=== PATIENT | female | born 1960 | race Caucasian/White ===

== ENCOUNTER 2024-03-30 10:02 | Day surgery (SDC) | payer MEDICARE, BC ==
[~2024-03-30] VITALS: Ht 167.6 cm; Wt 67.0 kg
[2024-03-30] VITALS (9 sets, daily range): BP systolic 103–130; BP diastolic 47–70; PULSE 62–77; RESP 10–18; TEMP 97.9; O2SAT 92–98
[2024-03-30] MEDS ORDERED: METO-411 PO (10:39)
[2024-03-30] MEDS ORDERED: MULT-1085 PO (10:39)
[2024-03-30] MEDS ORDERED: SPIR25TA5 PO (10:39)
[2024-03-30] MEDS ORDERED: AMLO-382 PO (10:39)
[2024-03-30 11:09] LABS: BASOPHILS # (AUTO) 0.1 X10'3 (0-0.2); BASOPHILS % (AUTO) 0.8 % (0-1); EOSINOPHILS # (AUTO) 0.1 X10'3 (0-0.9); EOSINOPHILS % (AUTO) 1.5 % (0-6); HEMOGLOBIN 11.6 g/dl (12.0-16.0); LYMPHOCYTES # (AUTO) 2.6 X10'3 (1.1-4.8); LYMPHOCYTES % (AUTO) 31.5 % (21-51); MEAN CORPUSCULAR HEMOGLOBIN 33.2 PG (27.0-31.0); MEAN CORPUSCULAR VOLUME 97.7 FL (78-98); MEAN PLATELET VOLUME 8.2 FL (7.4-10.4); MONOCYTES # (AUTO) 0.7 X10'3 (0-0.9); NEUTROPHILS # (AUTO) 4.6 X10'3 (1.8-7.7); NEUTROPHILS % (AUTO) 57.2 % (42-75); PLATELET COUNT 267 X10'3 (140-440); RED BLOOD COUNT 3.48 X10'6 (4.20-5.60); RED CELL DISTRIBUTION WIDTH 12.4 % (11.5-14.5); WHITE BLOOD COUNT 8.1 X10'3 (4.5-11.0)
[2024-03-30 11:35] LABS: INR 0.9 INR; PROTHROMBIN TIME 9.9 SECONDS (9.0-12.0)
[2024-03-30 11:45] LABS: ALBUMIN 3.7 G/DL (3.4-5.0); ANION GAP 9 (8-16); BLOOD UREA NITROGEN 16 MG/DL (7-18); BUN/CREATININE RATIO 15.2 (10.0-20.0); CALCIUM 9.9 MG/DL (8.5-10.1); CHLORIDE 107 MMOL/L (99-107); CHOL/HDL RATIO 3.7 (0.00-4.99); CHOLESTEROL 184 MG/DL (0-200); CREATININE 1.05 MG/DL (0.40-0.90); GLUCOSE 99 MG/DL (70-104); HDL CHOLESTEROL 50 MG/DL (35-60); LDL CHOLESTEROL 113 MG/DL (50-100); POTASSIUM 3.9 MMOL/L (3.5-5.1); SODIUM 140 MMOL/L (135-145); TOTAL CARBON DIOXIDE 24.5 MMOL/L (24-32); TRIGLYCERIDES 154 MG/DL (20-135); eCRCL 50 ML/MIN; eGFR 53 ML/MIN
[2024-03-30] MEDS: normal saline 1,000 ML IV SCH (11:51)
[2024-03-30] MEDS: diphenhydrAMINE 25mg capsule PO PRN (11:51)
[2024-03-30] MEDS: LORazepam 0.5 MG tablet PO PRN (11:51)
[2024-03-30] MEDS ORDERED: LIDOcaine 1% (10mg/ml) 2ml vial ONE (12:04)
[2024-03-30] MEDS ORDERED: verapamil 2.5 mg/ml inj IV ONE (12:04)
[2024-03-30] MEDS ORDERED: iohexol 350MG/ML 100ml bottle IV ONE (12:05)
[2024-03-30] MEDS ORDERED: fentaNYL/PF 50MCG/1 ML 2ML syringe ONE (12:05)
[2024-03-30] MEDS ORDERED: heparin 1,000unit/ml 10ml vial 10 ML ONE (12:05)
[2024-03-30] MEDS ORDERED: midazolam 1 mg/ML 2ml injection ONE (12:05)
[2024-03-30] MEDS ORDERED: nitroGLYCERIN 500mcg/5mL D5W 5 ML IV ONE (12:06)
[2024-03-30 13:32] LABS: ISTAT HGB ART 10.9 g/dl (12.0-16.0); ISTAT Hct ART 32 %PCV (35-45); ISTAT O2 SATURATION ARTERIAL 91 % (95-98); ISTAT SOURCE ART
[2024-03-30] MEDS ORDERED: HYDROcodone/acetaminophen 5mg/325mg tablet PO PRN (14:05)
[2024-03-30] MEDS ORDERED: HYDROcodone/acetaminophen 10/325mg tab PO PRN (14:05)
[2024-03-30 16:16] LABS: ISTAT HGB MIX 10.5 g/dl (12.0-16.0); ISTAT Hct MIX 31 %PCV (35-45); ISTAT O2 SATURATION MIX VENOUS 67 % (60-80); ISTAT SOURCE VEN
== END 2024-03-30 16:20 | disposition home or self-care (01) ==
LOC: SSTAY O 10:02
PROVIDERS: ATTEND Internal Medicine Interventional Cardiology
DX: I35.0 Nonrheumatic aortic (valve) stenosis (principal); I10 Essential (primary) hypertension; R94.31 Abnormal electrocardiogram [ECG] [EKG]; I11.9 Hypertensive heart disease without heart failure; E78.00 Pure hypercholesterolemia, unspecified; Z79.899 Other long term (current) drug therapy
CPT/HCPCS: 36415; 80048; 80061; 82803; 85014; 85025; 85610; 93005; 93460; 99152; A6258; A6402; C1751; C1769; C1894; J1644; J2001; J2250; J3010; J3490; J7030; Q0163; Q9967; Z7610

== ENCOUNTER 2024-04-19 10:35 | Outpatient (CLI) | payer MEDICARE, BC ==
[2024-04-15 15:45] LABS: ALBUMIN 4.2 G/DL (3.4-5.0); ANION GAP 7 (8-16); BLOOD UREA NITROGEN 19 MG/DL (7-18); BUN/CREATININE RATIO 20.7 (10.0-20.0); CALCIUM 10.1 MG/DL (8.5-10.1); CHLORIDE 104 MMOL/L (99-107); CREATININE 0.92 MG/DL (0.40-0.90); GLUCOSE 94 MG/DL (70-104); POTASSIUM 4.2 MMOL/L (3.5-5.1); SODIUM 138 MMOL/L (135-145); TOTAL CARBON DIOXIDE 27.1 MMOL/L (24-32); eGFR 61 ML/MIN
[~2024-04-19 10:35] MED LIST: AMLO-382 PO; METO-411 PO; MULT-1085 PO; SPIR25TA5 PO
[2024-04-19] MEDS ORDERED: iohexol 350MG/ML 100ml bottle IV ONE (11:20)
== END 2024-04-19 23:59 | disposition home or self-care (01) ==
LOC: RAD 10:35
PROVIDERS: ATTEND Internal Medicine Interventional Cardiology
DX: I35.8 Other nonrheumatic aortic valve disorders (principal); E78.5 Hyperlipidemia, unspecified; K76.89 Other specified diseases of liver; I70.0 Atherosclerosis of aorta
CPT/HCPCS: 36415; 71275; 80048; Q9967

== ENCOUNTER 2024-07-21 05:36 | Inpatient (IN) | payer MEDICARE, BC ==
[2024-07-14 13:32] VITALS: PULSE 84; RESP 16; O2SAT 98
[2024-07-14 15:27] LABS: BILIRUBIN,URINE NEGATIVE (Neg); CLARITY,URINE CLOUDY (Clear); COLOR,URINE YELLOW (Yellow); GLUCOSE, URINE NEGATIVE (Neg); KETONES,URINE NEGATIVE (Neg); LEUKOCYTE ESTERASE ,URINE NEGATIVE (Neg); NITRITES, URINE NEGATIVE (Neg); OCCULT BLOOD,URINE NEGATIVE (Neg); PH,URINE 7.5 (4.8-8.0); PROTEIN,URINE NEGATIVE (Neg); UROBILINOGEN,URINE 0.2 E.U/dL (0.2-1.0)
[2024-07-14 15:29] LABS: BASOPHILS # (AUTO) 0.1 X10'3 (0-0.2); BASOPHILS % (AUTO) 0.7 % (0-1); EOSINOPHILS # (AUTO) 0.1 X10'3 (0-0.9); LYMPHOCYTES # (AUTO) 2.4 X10'3 (1.1-4.8); LYMPHOCYTES % (AUTO) 29.4 % (21-51); MEAN CORPUSCULAR HEMOGLOBIN 33.5 PG (27.0-31.0); MEAN CORPUSCULAR HGB CONC 34.1 g/dL (33.0-36.5); MEAN CORPUSCULAR VOLUME 98.1 FL (78-98); MEAN PLATELET VOLUME 8.3 FL (7.4-10.4); MONOCYTES # (AUTO) 0.9 X10'3 (0-0.9); MONOCYTES % (AUTO) 10.8 % (2-12); NEUTROPHILS # (AUTO) 4.8 X10'3 (1.8-7.7); NEUTROPHILS % (AUTO) 58.1 % (42-75); PRE OP HEMATOCRIT 35.5 % (35.0-45.0); PRE OP HEMOGLOBIN 12.1 g/dL (12.0-16.0); PRE OP PLATELET COUNT 306 X10'3 (140-440); PRE OP WHITE BLOOD COUNT 8.3 10'3 (4.8-10.8); RED BLOOD COUNT 3.61 X10'6 (4.20-5.60); RED CELL DISTRIBUTION WIDTH 12.5 % (11.5-14.5)
[2024-07-14 15:40] LABS: UA COLLECTION TYPE CLN CATCH MIDSTREAM
[2024-07-14 15:41] LABS: AMORPHOUS PHOSPHATES 4+; BACTERIA,URINE 1+ /HPF (Neg); HEMOGLOBIN A1C 5.4 % (4.5-6.2); MUCUS STRANDS FEW /LPF (Neg); RBC,URINE NONE SEEN /HPF (0-2); SQUAMOUS EPITHELIAL CELL,UR FEW /LPF (FEW); WBC,URINE NONE SEEN /HPF (0-4)
[2024-07-14 15:43] LABS: PRE OP PROTIME 10.1 SECONDS (9.0-12.0)
[2024-07-14 15:44] LABS: ALBUMIN 4.1 G/DL (3.4-5.0); ALBUMIN/GLOBULIN RATIO 1.2 (1.1-1.5); ALKALINE PHOSPHATASE 69 IU/L (46-116); BLOOD UREA NITROGEN 21 MG/DL (7-18); BUN/CREATININE RATIO 23.3 (10.0-20.0); CALCIUM 10.4 MG/DL (8.5-10.1); CHLORIDE 108 MMOL/L (99-107); PRE OP ALT 23 U/L (30-65); PRE OP ANION GAP 8 (8-16); PRE OP AST 16 U/L (10-37); PRE OP BILIRUB, TOTAL 0.2 MG/DL (0.0-1.0); PRE OP GLUCOSE 86 MG/DL (70-104); PRE OP POTASSIUM 3.7 MMOL/L (3.4-5.1); PRE OP SODIUM 144 MMOL/L (135-145); TOTAL CARBON DIOXIDE 27.9 MMOL/L (24-32); TOTAL PROTEIN 7.5 G/DL (6.4-8.2); eGFR 63 ML/MIN
[2024-07-15 06:24] LABS: ABG BASE EXCESS 1.4 mmol/L (-2.0-3.0); ABG HCO3 23.8 mmol/L (21.0-28.0); ABG OXYGEN SATURATION 95.7 % (94.0-98.0); ABG PCO2 (T) 30.8 mmHg (32.0-45.0); ABG PH (T) 7.506 (7.350-7.450); ABG PO2 (T) 71.5 mmHg (83.0-108.0); ALLEN'S TEST POSITIVE; FCOHb 0.3 % (0.5-1.5); FHHb 4.3 % (0.0-5.0); FMetHb 0.3 % (0.0-1.5); FO2Hb 95.1 % (94.0-98.0); MODE ROOM AIR; TOTAL HEMOGLOBIN 12.5 G/dl (12.0-16.0)
[~2024-07-21] VITALS: Ht 167.6 cm; Wt 66.5 kg
[2024-07-21] VITALS (25 sets, daily range): BP systolic 96–159; BP diastolic 46–71; PULSE 76–100; RESP 14–23; TEMP 98.4; O2SAT 91–99
[2024-07-21] MEDS: DOCUMENT DATE & TIME OF BETA-BLOCKER PO ONE (05:30)
[2024-07-21] MEDS: vancomycin/NS 1 GM ADD-VANTAGE 250 ML IV ONE (05:30)
[2024-07-21] MEDS: Insulin Reg/NS 100units/100mL 100 ML IV SCH (05:30)
[~2024-07-21 05:36] MED LIST changes: +HYDR25TA90 PO; -SPIR25TA5 PO; +VANCOMYCIN 1GM 200ML H20 (PEG) 200 ML IV ONE; +dextrose 50%-water 50ml dispensing syringe IV PRN; +insulin glargine (Lantus) pen - multi-dose SQ PRN
[2024-07-21] MEDS: famotidine 20mg tablet PO ONE (06:11)
[2024-07-21] MEDS: mupirocin 2% nasal ointment 1gm UD NS ONE (06:11)
[2024-07-21] MEDS: metoprolol tartrate 12.5mg (1/2 tablet) PO ONE (06:16)
[2024-07-21] MEDS: ceFAZolin 2gm in dextrose, iso 50 ML IV ONE (06:20)
[2024-07-21] MEDS: ringers solution, lacted 1,000 ML IV SCH (06:21)
[2024-07-21] MEDS ORDERED: epiNEPHrine 1 mg/ml inj ONE (07:21)
[2024-07-21] MEDS ORDERED: vancomycin 1,000mg inj ONE (07:21)
[2024-07-21] MEDS ORDERED: ceFAZolin 1000mg inj ONE (07:21)
[2024-07-21] MEDS ORDERED: potassium acetate 2 mEq/1ml inj. IV ONE (08:00)
[2024-07-21] MEDS ORDERED: MIDAZolam 1 MG/ML 5ML VIAL ONE (08:12)
[2024-07-21] MEDS ORDERED: SUfentanil 50mcg/ml 1ml amp IV ONE (08:12)
[2024-07-21] MEDS ORDERED: propofol inj 20 ML IV ONE (08:19)
[2024-07-21] MEDS ORDERED: sevoflurane 250ml liquid IH ONE (08:27)
[2024-07-21] MEDS: LORazepam 2 mg/ml vial ONE (08:27)
[2024-07-21 09:10] LABS: ABG HCO3 21.3 mmol/L (21.0-28.0); ABG OXYGEN SATURATION 98.4 % (94.0-98.0); ABG PCO2 35.2 mmHg (32.0-45.0); ABG PO2 133.4 mmHg (83.0-108.0); CL (ABG) 107 mmol/L (98-107); FCOHb 0.3 % (0.5-1.5); FHHb 1.6 % (0.0-5.0); FMetHb 0.3 % (0.0-1.5); FO2Hb 97.8 % (94.0-98.0); GLUCOSE (ABG) 103 mg/dl (65-95); IONIZED CA (ABG) 1.27 mmol/L (1.15-1.33); K (ABG) 3.9 mmol/L (3.40-4.50); TOTAL HEMOGLOBIN 10.8 G/dl (12.0-16.0)
[2024-07-21 09:39] LABS: ABG BASE EXCESS -2.5 mmol/L (-2.0-3.0); ABG HCO3 21.5 mmol/L (21.0-28.0); ABG OXYGEN SATURATION 99.5 % (94.0-98.0); ABG PCO2 33.3 mmHg (32.0-45.0); ABG PH 7.428 (7.350-7.450); CL (ABG) 104 mmol/L (98-107); FCOHb 0.5 % (0.5-1.5); FHHb 0.5 % (0.0-5.0); GLUCOSE (ABG) 107 mg/dl (65-95); IONIZED CA (ABG) 1.09 mmol/L (1.15-1.33); K (ABG) 5.7 mmol/L (3.40-4.50); TOTAL HEMOGLOBIN 7.2 G/dl (12.0-16.0)
[2024-07-21 10:02] LABS: ABG BASE EXCESS VENOUS -2.4 mmol/L (-2.0-3.0); ABG HCO3 VENOUS 23.4 mmol/L (22.0-29.0); ABG OXYGEN SATURATION VENOUS 79.9 % (60.0-85.0); ABG PCO2 VENOUS 45.2 mmHg (38.0-54.0); ABG PH (VENOUS) 7.332 (7.320-7.430); ABG PO2 VENOUS 44.7 mmHg (23.0-48.0); CL (ABG) 105 mmol/L (98-107); FCOHb VENOUS 0.3 % (0.5-1.5); FMetHb VENOUS 0.1 % (0.5-1.5); FO2Hb VENOUS 79.6 % (0-80.0); GLUCOSE (ABG) 161 mg/dl (65-95); IONIZED CA (ABG) 1.19 mmol/L (1.15-1.33); K (ABG) 4.9 mmol/L (3.40-4.50); TOTAL HEMOGLOBIN 9.1 G/dl (12.0-16.0)
[2024-07-21 10:06] LABS: ABG PO2 514.6 mmHg (83.0-108.0)
[2024-07-21 10:43] LABS: ABG BASE EXCESS VENOUS -3.2 mmol/L (-2.0-3.0); ABG HCO3 VENOUS 22.3 mmol/L (22.0-29.0); ABG OXYGEN SATURATION VENOUS 80.6 % (60.0-85.0); ABG PCO2 VENOUS 41.8 mmHg (38.0-54.0); ABG PH (VENOUS) 7.345 (7.320-7.430); ABG PO2 VENOUS 45.3 mmHg (23.0-48.0); CL (ABG) 105 mmol/L (98-107); FCOHb VENOUS 0.2 % (0.5-1.5); FHHb VENOUS 19.3 %; FMetHb VENOUS 0.1 % (0.5-1.5); FO2Hb VENOUS 80.4 % (0-80.0); GLUCOSE (ABG) 182 mg/dl (65-95); IONIZED CA (ABG) 1.36 mmol/L (1.15-1.33); K (ABG) 4.5 mmol/L (3.40-4.50); TOTAL HEMOGLOBIN 8.8 G/dl (12.0-16.0)
[2024-07-21 10:45] LABS: ACTIVATED CLOTTING TIME 104 SEC (101-148)
[2024-07-21] MEDS ORDERED: magnesium hydroxide 30ml (MOM) UD suspension PO PRN (11:00)
[2024-07-21] MEDS ORDERED: Neutra Phos packet PO PRN (11:00)
[2024-07-21] MEDS ORDERED: potassium Cl 40MEQ/1/2NS 520ml 520 ML IV PRN (11:00)
[2024-07-21] MEDS ORDERED: morphine 4 MG/ML inj SYRINge IV PRN (11:00)
[2024-07-21] MEDS ORDERED: dextrose 50%-water 50ml dispensing syringe IV PRN (11:00)
[2024-07-21] MEDS ORDERED: Insulin Reg/NS 100units/100mL 100 ML IV SCH (11:00)
[2024-07-21] MEDS ORDERED: sodium phosphate inj. 15 MMOL in dextrose 5%-water 250 ML IV PRN (11:00)
[2024-07-21] MEDS ORDERED: insulin glargine (Lantus) pen - multi-dose SQ PRN (11:00)
[2024-07-21] MEDS ORDERED: acetaminophen 325mg tablet PO PRN (11:00)
[2024-07-21] MEDS ORDERED: magnesium sulf-water 2g/50mL 50 ML IV PRN (11:00)
[2024-07-21] MEDS ORDERED: potassium CL 10mEq/100ml bag 100 ML IV PRN (11:00)
[2024-07-21] MEDS ORDERED: potassium Cl 20 mEq SR tablet PO PRN (11:00)
[2024-07-21] MEDS ORDERED: metoclopramide 5 mg/ml inj IV PRN (11:00)
[2024-07-21] MEDS ORDERED: bisacodyl 10mg suppository rectal RC PRN (11:00)
[2024-07-21] MEDS ORDERED: mineral oil 133ml enema RC PRN (11:00)
[2024-07-21] MEDS: ceFAZolin 1000mg inj IR ONE (11:21)
[2024-07-21 11:41] LABS: BASOPHILS # (AUTO) 0.1 X10'3 (0-0.2); BASOPHILS % (AUTO) 0.3 % (0-1); EOSINOPHILS # (AUTO) 0.1 X10'3 (0-0.9); EOSINOPHILS % (AUTO) 0.5 % (0-6); HEMATOCRIT 29.3 % (35.0-45.0); LYMPHOCYTES # (AUTO) 1.7 X10'3 (1.1-4.8); LYMPHOCYTES % (AUTO) 10.8 % (21-51); MEAN CORPUSCULAR HEMOGLOBIN 33.3 PG (27.0-31.0); MEAN CORPUSCULAR HGB CONC 34.1 g/dL (33.0-36.5); MEAN CORPUSCULAR VOLUME 97.5 FL (78-98); MEAN PLATELET VOLUME 8.3 FL (7.4-10.4); MONOCYTES # (AUTO) 0.6 X10'3 (0-0.9); MONOCYTES % (AUTO) 3.7 % (2-12); NEUTROPHILS # (AUTO) 13.1 X10'3 (1.8-7.7); NEUTROPHILS % (AUTO) 84.7 % (42-75); PLATELET COUNT 155 X10'3 (140-440); RED BLOOD COUNT 3.01 X10'6 (4.20-5.60); RED CELL DISTRIBUTION WIDTH 12.5 % (11.5-14.5); WHITE BLOOD COUNT 15.5 X10'3 (4.5-11.0)
[2024-07-21] MEDS: sodium chloride 0.45% 1,000 ML IV SCH (11:43)
[2024-07-21 11:53] LABS: ABG BASE EXCESS -3.9 mmol/L (-2.0-3.0); ABG HCO3 20.2 mmol/L (21.0-28.0); ABG OXYGEN SATURATION 98.5 % (94.0-98.0); ABG PCO2 (T) 31.9 mmHg (32.0-45.0); ABG PH (T) 7.415 (7.350-7.450); FCOHb 0.3 % (0.5-1.5); FHHb 1.5 % (0.0-5.0); FMetHb 0.3 % (0.0-1.5); FO2Hb 97.9 % (94.0-98.0); MODE SIMV VC; PATIENT TEMPERATURE 35.9; PEEP 5 cm H2O; RESPIRATORY RATE 14 b/min; TIDAL VOLUME 500 mL; TOTAL HEMOGLOBIN 10.9 G/dl (12.0-16.0)
[2024-07-21 11:57] LABS: APTT 23 SECONDS (22-32); INR 1.1 INR
[2024-07-21] MEDS ORDERED: rocuronium 10mg/ml inj IV ONE ×2 (12:02)
[2024-07-21 12:07] LABS: ALANINE AMINOTRANSFERASE 18 U/L (12-78); ALBUMIN 3.5 G/DL (3.4-5.0); ALBUMIN/GLOBULIN RATIO 1.5 (1.1-1.5); ALKALINE PHOSPHATASE 45 IU/L (46-116); ANION GAP 10 (8-16); ASPARTATE AMINO TRANSFERASE 29 U/L (10-37); BILIRUBIN,TOTAL 0.4 MG/DL (0.1-1.0); BLOOD UREA NITROGEN 14 MG/DL (7-18); BUN/CREATININE RATIO 16.3 (10.0-20.0); CALCIUM 9.1 MG/DL (8.5-10.1); CHLORIDE 108 MMOL/L (99-107); CREATININE 0.86 MG/DL (0.40-0.90); GLUCOSE 172 MG/DL (70-104); PHOSPHORUS 2.4 MG/DL (2.3-4.5); POTASSIUM 4.1 MMOL/L (3.5-5.1); SODIUM 140 MMOL/L (135-145); TOTAL CARBON DIOXIDE 22.4 MMOL/L (24-32); TOTAL PROTEIN 5.8 G/DL (6.4-8.2); eCRCL 61 ML/MIN; eGFR 66 ML/MIN
[2024-07-21 12:13] LABS: PROTHROMBIN TIME 11.4 SECONDS (9.0-12.0)
[2024-07-21] MEDS: potassium Cl 20mEq/100mL bag 100 ML IV PRN (12:16)
[2024-07-21] MEDS: albumin (Human) 5% 250ml 250 ML IV PRN (12:16)
[2024-07-21] MEDS: gabapentin 300mg capsule PO SCH (12:49)
[2024-07-21] MEDS: morphine 2 MG/ML inj. syringe IV PRN (12:49)
[2024-07-21 12:50] LABS: MAGNESIUM 3.8 MG/DL (1.5-2.4)
[2024-07-21] MEDS: ceFAZolin/D5W- 1GM premix 50 ML IV SCH (16:20)
[2024-07-21] MEDS: HYDROcodone/acetaminophen 10/325mg tab PO PRN (16:20)
[2024-07-21 16:47] LABS: ABG BASE EXCESS -6.2 mmol/L (-2.0-3.0); ABG HCO3 18.2 mmol/L (21.0-28.0); ABG OXYGEN SATURATION 95.8 % (94.0-98.0); ABG PCO2 (T) 31.8 mmHg (32.0-45.0); ABG PH (T) 7.375 (7.350-7.450); ABG PO2 (T) 77.8 mmHg (83.0-108.0); FCOHb 0.5 % (0.5-1.5); FHHb 4.2 % (0.0-5.0); FMetHb 0.3 % (0.0-1.5); MODE CPAP; PATIENT TEMPERATURE 36.7; PEEP 5 cm H2O; TOTAL HEMOGLOBIN 9.1 G/dl (12.0-16.0)
[2024-07-21 17:20] LABS: BASOPHILS % (AUTO) 0.1 % (0-1); EOSINOPHILS % (AUTO) 0 % (0-6); HEMATOCRIT 25.4 % (35.0-45.0); HEMOGLOBIN 8.6 g/dl (12.0-16.0); LYMPHOCYTES # (AUTO) 0.7 X10'3 (1.1-4.8); LYMPHOCYTES % (AUTO) 4.4 % (21-51); MEAN CORPUSCULAR HEMOGLOBIN 33.3 PG (27.0-31.0); MEAN CORPUSCULAR HGB CONC 33.8 g/dL (33.0-36.5); MEAN CORPUSCULAR VOLUME 98.6 FL (78-98); MEAN PLATELET VOLUME 8.6 FL (7.4-10.4); MONOCYTES # (AUTO) 0.6 X10'3 (0-0.9); MONOCYTES % (AUTO) 3.8 % (2-12); NEUTROPHILS # (AUTO) 14.7 X10'3 (1.8-7.7); NEUTROPHILS % (AUTO) 91.7 % (42-75); PLATELET COUNT 149 X10'3 (140-440); RED BLOOD COUNT 2.57 X10'6 (4.20-5.60); RED CELL DISTRIBUTION WIDTH 12.5 % (11.5-14.5)
[2024-07-21 17:36] LABS: ALBUMIN 4.1 G/DL (3.4-5.0); ANION GAP 11 (8-16); BLOOD UREA NITROGEN 17 MG/DL (7-18); BUN/CREATININE RATIO 15.7 (10.0-20.0); CHLORIDE 115 MMOL/L (99-107); CREATININE 1.08 MG/DL (0.40-0.90); GLUCOSE 150 MG/DL (70-104); MAGNESIUM 2.5 MG/DL (1.5-2.4); PHOSPHORUS 1.4 MG/DL (2.3-4.5); POTASSIUM 3.6 MMOL/L (3.5-5.1); SODIUM 147 MMOL/L (135-145); TOTAL CARBON DIOXIDE 21.1 MMOL/L (24-32); eCRCL 49 ML/MIN; eGFR 51 ML/MIN
[2024-07-21] MEDS: ondansetron/PF 4mg/2ml inj IV PRN (18:47)
[2024-07-21] MEDS: potassium Cl 40MEQ/270ML bag 250 ML IV PRN (18:49)
[2024-07-21] MEDS: sodium phosphate inj. 30 MMOL in dextrose 5%-water 250 ML IV PRN (19:23)
[2024-07-21] MEDS ORDERED: VANCOMYCIN 1GM 200ML H20 (PEG) 200 ML IV SCH (20:00)
[2024-07-21] MEDS: mupirocin 2% nasal ointment 1gm UD NS SCH (20:22)
[2024-07-21] MEDS: sennosides/docusate sodium tablet PO SCH (20:22)
[2024-07-21] MEDS: vancomycin/NS 1 GM ADD-VANTAGE 250 ML IV SCH (20:27)
[2024-07-21] MEDS: niCARDipine-NS 40mg/200ml IVPB 200 ML IV PRN (20:49)
[2024-07-21] MEDS: atorvastatin 10mg tablet PO SCH (21:59)
[2024-07-22] VITALS (25 sets, daily range): BP systolic 114–140; BP diastolic 43–79; PULSE 87–106; RESP 12–26; O2SAT 90–96
[2024-07-22 03:12] LABS: BASOPHILS % (AUTO) 0.1 % (0-1); EOSINOPHILS % (AUTO) 0 % (0-6); HEMATOCRIT 25.2 % (35.0-45.0); HEMOGLOBIN 8.5 g/dl (12.0-16.0); LYMPHOCYTES # (AUTO) 0.5 X10'3 (1.1-4.8); LYMPHOCYTES % (AUTO) 2.4 % (21-51); MEAN CORPUSCULAR HGB CONC 33.8 g/dL (33.0-36.5); MEAN CORPUSCULAR VOLUME 97.5 FL (78-98); MEAN PLATELET VOLUME 8.9 FL (7.4-10.4); MONOCYTES # (AUTO) 1.5 X10'3 (0-0.9); MONOCYTES % (AUTO) 7.7 % (2-12); NEUTROPHILS # (AUTO) 17.5 X10'3 (1.8-7.7); NEUTROPHILS % (AUTO) 89.8 % (42-75); PLATELET COUNT 115 X10'3 (140-440); RED BLOOD COUNT 2.59 X10'6 (4.20-5.60); WHITE BLOOD COUNT 19.4 X10'3 (4.5-11.0)
[2024-07-22 03:27] LABS: ALANINE AMINOTRANSFERASE 18 U/L (12-78); ALBUMIN 3.8 G/DL (3.4-5.0); ALBUMIN/GLOBULIN RATIO 1.7 (1.1-1.5); ALKALINE PHOSPHATASE 38 IU/L (46-116); ANION GAP 12 (8-16); ASPARTATE AMINO TRANSFERASE 39 U/L (10-37); BILIRUBIN,TOTAL 0.6 MG/DL (0.1-1.0); BLOOD UREA NITROGEN 18 MG/DL (7-18); BUN/CREATININE RATIO 23.1 (10.0-20.0); CALCIUM 8.7 MG/DL (8.5-10.1); CHLORIDE 111 MMOL/L (99-107); CREATININE 0.78 MG/DL (0.40-0.90); GLUCOSE 161 MG/DL (70-104); PHOSPHORUS 3.2 MG/DL (2.3-4.5); POTASSIUM 3.9 MMOL/L (3.5-5.1); SODIUM 143 MMOL/L (135-145); TOTAL CARBON DIOXIDE 20.3 MMOL/L (24-32); TOTAL PROTEIN 6.1 G/DL (6.4-8.2); eCRCL 67 ML/MIN; eGFR 74 ML/MIN
[2024-07-22] MEDS: magnesium sulf-water 4G/100mL 100 ML IV PRN (04:42)
[2024-07-22] MEDS: acetaminophen 325mg tablet PO PRN (05:35)
[2024-07-22] MEDS: potassium Cl 40MEQ/270ML bag 270 ML IV PRN (05:42)
[2024-07-22] MEDS: aspirin 81mg tab.chew PO SCH (09:27)
[2024-07-22] MEDS: multivitamins, therapeutics tablet PO SCH (09:27)
[2024-07-22] MEDS: metoprolol tartrate 12.5mg (1/2 tablet) PO SCH (09:28)
[2024-07-23] VITALS (22 sets, daily range): BP systolic 115–143; BP diastolic 67–85; PULSE 89–112; RESP 15–30; TEMP 97.2–98.7; O2SAT 90–96
[2024-07-23 03:05] LABS: BASOPHILS % (AUTO) 0.1 % (0-1); EOSINOPHILS % (AUTO) 0 % (0-6); HEMATOCRIT 23.7 % (35.0-45.0); LYMPHOCYTES # (AUTO) 0.6 X10'3 (1.1-4.8); LYMPHOCYTES % (AUTO) 2.4 % (21-51); MEAN CORPUSCULAR HEMOGLOBIN 33.2 PG (27.0-31.0); MEAN CORPUSCULAR HGB CONC 33.7 g/dL (33.0-36.5); MEAN CORPUSCULAR VOLUME 98.5 FL (78-98); MEAN PLATELET VOLUME 9.4 FL (7.4-10.4); MONOCYTES # (AUTO) 1.7 X10'3 (0-0.9); MONOCYTES % (AUTO) 6.5 % (2-12); NEUTROPHILS # (AUTO) 24.1 X10'3 (1.8-7.7); PLATELET COUNT 94 X10'3 (140-440); RED BLOOD COUNT 2.41 X10'6 (4.20-5.60); RED CELL DISTRIBUTION WIDTH 12.8 % (11.5-14.5)
[2024-07-23 03:09] LABS: WHITE BLOOD COUNT 26.4 X10'3 (4.5-11.0)
[2024-07-23 03:17] LABS: ALBUMIN 3.3 G/DL (3.4-5.0); ANION GAP 7 (8-16); BLOOD UREA NITROGEN 19 MG/DL (7-18); BUN/CREATININE RATIO 25.7 (10.0-20.0); CHLORIDE 105 MMOL/L (99-107); CREATININE 0.74 MG/DL (0.40-0.90); GLUCOSE 159 MG/DL (70-104); MAGNESIUM 2.6 MG/DL (1.5-2.4); PHOSPHORUS 2.4 MG/DL (2.3-4.5); POTASSIUM 4.5 MMOL/L (3.5-5.1); SODIUM 136 MMOL/L (135-145); TOTAL CARBON DIOXIDE 24.1 MMOL/L (24-32); eCRCL 71 ML/MIN; eGFR 79 ML/MIN
[2024-07-23 03:32] LABS: TOTAL CELLS COUNTED 100
[2024-07-23] MEDS ORDERED: potassium Cl 40MEQ/1/2NS 520ml 520 ML IV PRN (07:55)
[2024-07-23] MEDS ORDERED: potassium Cl 20mEq/100mL bag 100 ML IV PRN (07:55)
[2024-07-23] MEDS ORDERED: potassium Cl 20 mEq SR tablet PO PRN (07:55)
[2024-07-23] MEDS ORDERED: magnesium sulf-water 2g/50mL 50 ML IV PRN (07:55)
[2024-07-23] MEDS ORDERED: potassium CL 10mEq/100ml bag 100 ML IV PRN (07:55)
[2024-07-23] MEDS ORDERED: potassium Cl 40MEQ/270ML bag 250 ML IV PRN (07:55)
[2024-07-23] MEDS: magnesium Cl slow-release 64mg tablet PO SCH (08:00)
[2024-07-23] MEDS: pantoprazole 40mg Tablet.DR PO SCH (08:17)
[2024-07-24] VITALS (11 sets, daily range): BP systolic 110–133; BP diastolic 68–86; PULSE 71–148; RESP 16–31; TEMP 97.5–98.3; O2SAT 92–98
[2024-07-24] MEDS: amiodarone 150mg/dext, iso-os 100 ML IV ONE (04:51)
[2024-07-24] MEDS: amiodarone/D5 360MG/200ML BAG 200 ML IV SCH (05:59)
[2024-07-24 06:39] LABS: BASOPHILS % (AUTO) 0.1 % (0-1); EOSINOPHILS % (AUTO) 0 % (0-6); HEMATOCRIT 26.3 % (35.0-45.0); HEMOGLOBIN 8.8 g/dl (12.0-16.0); LYMPHOCYTES # (AUTO) 1.6 X10'3 (1.1-4.8); MEAN CORPUSCULAR HEMOGLOBIN 32.7 PG (27.0-31.0); MEAN CORPUSCULAR HGB CONC 33.5 g/dL (33.0-36.5); MEAN CORPUSCULAR VOLUME 97.4 FL (78-98); MEAN PLATELET VOLUME 9.3 FL (7.4-10.4); MONOCYTES # (AUTO) 1.7 X10'3 (0-0.9); MONOCYTES % (AUTO) 8.4 % (2-12); NEUTROPHILS # (AUTO) 16.6 X10'3 (1.8-7.7); NEUTROPHILS % (AUTO) 83.5 % (42-75); PLATELET COUNT 114 X10'3 (140-440); RED CELL DISTRIBUTION WIDTH 12.5 % (11.5-14.5); WHITE BLOOD COUNT 19.9 X10'3 (4.5-11.0)
[2024-07-24 06:57] LABS: ALBUMIN 3.1 G/DL (3.4-5.0); ANION GAP 9 (8-16); BLOOD UREA NITROGEN 17 MG/DL (7-18); BUN/CREATININE RATIO 28.8 (10.0-20.0); CALCIUM 9.2 MG/DL (8.5-10.1); CHLORIDE 105 MMOL/L (99-107); CREATININE 0.59 MG/DL (0.40-0.90); GLUCOSE 142 MG/DL (70-104); POTASSIUM 3.7 MMOL/L (3.5-5.1); SODIUM 136 MMOL/L (135-145); TOTAL CARBON DIOXIDE 21.6 MMOL/L (24-32); eCRCL 89 ML/MIN; eGFR > 90 ML/MIN
[2024-07-24 08:04] LABS: MAGNESIUM 1.9 MG/DL (1.5-2.4)
[2024-07-24] MEDS ORDERED: furosemide 40mg/4ml inj IV ONE (09:15)
[2024-07-24] MEDS: magnesium sulf-water 4G/100mL 100 ML IV PRN (12:00)
[2024-07-24] MEDS: potassium Cl 20 mEq SR tablet PO PRN (12:02)
[2024-07-24] MEDS: ALPRAZolam 0.25mg tablet PO PRN (14:58)
[2024-07-24] MEDS: furosemide 40mg/4ml inj IV ONE (17:00)
[2024-07-24] MEDS: metoprolol tartrate 25mg tablet PO SCH (19:25)
[2024-07-24] MEDS: HYDROcodone/acetaminophen 10/325mg tab PO PRN (19:25)
[2024-07-25] VITALS (12 sets, daily range): BP systolic 114–138; BP diastolic 68–91; PULSE 75–101; RESP 16–23; TEMP 97.6–98.7; O2SAT 94–98
[2024-07-25 06:55] LABS: BASOPHILS % (AUTO) 0.1 % (0-1); EOSINOPHILS # (AUTO) 0.2 X10'3 (0-0.9); EOSINOPHILS % (AUTO) 1.4 % (0-6); HEMATOCRIT 29.2 % (35.0-45.0); HEMOGLOBIN 9.9 g/dl (12.0-16.0); LYMPHOCYTES # (AUTO) 2.1 X10'3 (1.1-4.8); LYMPHOCYTES % (AUTO) 17.4 % (21-51); MEAN CORPUSCULAR HEMOGLOBIN 32.9 PG (27.0-31.0); MEAN CORPUSCULAR HGB CONC 33.9 g/dL (33.0-36.5); MEAN CORPUSCULAR VOLUME 96.9 FL (78-98); MONOCYTES # (AUTO) 1.2 X10'3 (0-0.9); MONOCYTES % (AUTO) 9.8 % (2-12); NEUTROPHILS # (AUTO) 8.6 X10'3 (1.8-7.7); NEUTROPHILS % (AUTO) 71.3 % (42-75); PLATELET COUNT 148 X10'3 (140-440); RED BLOOD COUNT 3.01 X10'6 (4.20-5.60); RED CELL DISTRIBUTION WIDTH 12.5 % (11.5-14.5); WHITE BLOOD COUNT 12.1 X10'3 (4.5-11.0)
[2024-07-25 07:18] LABS: ALBUMIN 2.9 G/DL (3.4-5.0); ANION GAP 10 (8-16); BLOOD UREA NITROGEN 21 MG/DL (7-18); BUN/CREATININE RATIO 25.6 (10.0-20.0); CHLORIDE 103 MMOL/L (99-107); CREATININE 0.82 MG/DL (0.40-0.90); GLUCOSE 117 MG/DL (70-104); MAGNESIUM 2.9 MG/DL (1.5-2.4); POTASSIUM 3.9 MMOL/L (3.5-5.1); SODIUM 136 MMOL/L (135-145); TOTAL CARBON DIOXIDE 23.1 MMOL/L (24-32); eCRCL 64 ML/MIN; eGFR 70 ML/MIN
[2024-07-25] MEDS ORDERED: ASPI81TA53 PO (08:51)
[2024-07-25] MEDS ORDERED: LOP25T PO (08:51)
[2024-07-25] MEDS ORDERED: ATOR10TA PO (08:51)
[2024-07-25] MEDS ORDERED: HYDR-3972 PO (08:51)
[2024-07-25] MEDS ORDERED: AMI200T PO (08:54)
[2024-07-25] MEDS: amiodarone 200mg tablet PO SCH (09:32)
== END 2024-07-25 16:45 | disposition home or self-care (01) | DRG 219 ==
LOC: PAS IN 05:36 → CICU 2S 10:49 → PCU 3S 07-23 17:21
PROVIDERS: ADMIT Thoracic Surgery (Cardiothoracic Vascular Surgery); ATTEND Thoracic Surgery (Cardiothoracic Vascular Surgery)
PROC: 5A1221Z Performance of Cardiac Output, Continuous (ICD-10-PCS; 2024-07-21)
PROC: B24BZZ4 Ultrasonography of Heart with Aorta, Transesophageal (ICD-10-PCS; 2024-07-21)
PROC: 02RF08Z Replacement of Aortic Valve with Zooplastic Tissue, Open Approach (ICD-10-PCS; principal; 2024-07-21 08:27)
DX: I35.0 Nonrheumatic aortic (valve) stenosis (principal); N17.0 Acute kidney failure with tubular necrosis; D62 Acute posthemorrhagic anemia; Q23.81 Bicuspid aortic valve; I10 Essential (primary) hypertension; I48.91 Unspecified atrial fibrillation
CPT/HCPCS: 36415; 36600; 71045; 71046; 80048; 80053; 81001; 82330; 82435; 82803; 82947; 82948; 83036; 83735; 84100; 84132; 84295; 85007; 85018; 85025; 85347; 85610; 85730; 86885; 86900; 86901; 86920; 87081; 93005; 93312; 93325; 93970; 94002; 94010; 94664; 94668; 94760; 97110; 97116; 97162; 97530; A4615; A4618; A6258; A6449; A7000; A7048; C1751; G0378; J0171; J0282; J0690; J1644; J1815; J1940; J2060; J2150; J2250; J2270; J2405; J2704; J2720; J2919; J3370; J3475; J3480; J3490; J7030; J7040; J7050; J7060; J7120; P9016; P9045; P9047